=== PATIENT | female | born 1955 | race Asian ===

== ENCOUNTER 2018-11-09 08:03 | Day surgery (SDC) | payer OTHER ==
[~2018-11-09] VITALS: Ht 152.4 cm; Wt 52.6 kg
[2018-11-09 08:40] VITALS: BP 118/57
[2018-11-09 13:41] VITALS: BP 93/61
== END 2018-11-09 12:55 | disposition home or self-care (01) ==
LOC: DS 08:03 → GI 08:30 → OR 10:30 → GI 10:30 → DS 12:55
PROVIDERS: Internal Medicine Gastroenterology
PROC: 0D758ZZ Dilation of Esophagus, Via Natural or Artificial Opening Endoscopic (ICD-10-PCS; principal; 2018-11-09 08:30)
PROC: 0DB68ZZ Excision of Stomach, Via Natural or Artificial Opening Endoscopic (ICD-10-PCS; 2018-11-09 08:30)
DX: K22.4 Dyskinesia of esophagus (principal)
CPT/HCPCS: 43235; J1200; J1610; J2250; J2310; J3010; J3490